=== PATIENT | female | born 1995 | race Caucasian/White ===

== ENCOUNTER 2022-08-20 19:21 | Emergency (ER) | payer SELFPAY ==
[~2022-08-20] VITALS: Ht 154.9 cm; Wt 55.3 kg
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
[2022-08-20] MEDS ORDERED: LIDOCAINE 1% INJ 50 ML MDV IJ ONE (20:48)
[2022-08-20] MEDS ORDERED: HYDROCODONE/APAP 5/325MG TABLET ONE (20:48)
[2022-08-20] MEDS ORDERED: LIDOCAINE HCL/PF 1% 30 ML VIAL TP ONE (21:00)
[2022-08-20] MEDS ORDERED: HYDROCODONE/APAP 5/325MG TABLET PO ONE (21:00)
[2022-08-20] MEDS ORDERED: TDAP [DIPH/PERTUSSIS/TET] 0.5 ML VIAL IM ONE ×2 (21:00→21:23)
[2022-08-20] MEDS ORDERED: GUAIFENESIN/D-METHORPHAN HB 5 ML UDC PO ONE (21:00)
--- NOTE | 2022-08-20 21:20 | NUR ---
SEEN BY DR SULLIVAN AT BEDSIDE.
[2022-08-20] MEDS ORDERED: LIDOCAINE HCL/MPF 1% 30 ML VIAL IJ ONE (21:22)
[2022-08-20] MEDS ORDERED: GUAIFENESIN/D-METHORPHAN HB 5 ML UDC ONE (21:23)
[2022-08-20] MEDS ORDERED: KETO10TA2 PO (21:37)
[2022-08-20] MEDS ORDERED: CLIN300C12 PO (21:37)
--- NOTE | 2022-08-20 22:12 | NUR ---
Patient discharged to home in stable condition. Written and verbal after care instructions given. Patient verbalizes understanding of instruction.
[2022-08-20 22:13] VITALS: BP 147/84
== END 2022-08-20 22:13 | disposition home or self-care (01) ==
LOC: ER 19:26
DX: S91.201A Unspecified open wound of right great toe with damage to nail, initial encounter (principal); V09.9XXA Pedestrian injured in unspecified transport accident, initial encounter; Y93.89 Activity, other specified; Y92.89 Other specified places as the place of occurrence of the external cause; Y99.8 Other external cause status
CPT/HCPCS: 99284; 90471; 11730; 90715; 73630; J3490 ×3